=== PATIENT | female | born 1945 | race Caucasian/White ===

== ENCOUNTER → 2016-11-07 | Outpatient (CLI) | payer MEDICARE | END | disposition home or self-care (01) | LOC: RAD 08:21 | PROVIDERS: ATTEND Physical Medicine & Rehabilitation | DX: M47.817 Spondylosis without myelopathy or radiculopathy, lumbosacral region (principal); M47.816 Spondylosis without myelopathy or radiculopathy, lumbar region; M51.36 Other intervertebral disc degeneration, lumbar region; M51.27 Other intervertebral disc displacement, lumbosacral region; M51.26 Other intervertebral disc displacement, lumbar region; M48.06 Spinal stenosis, lumbar region; M48.07 Spinal stenosis, lumbosacral region | CPT/HCPCS: 72148 ==

== ENCOUNTER 2017-02-21 21:26 | Emergency (ER) | payer MEDICARE ==
[~2017-02-21] VITALS: Ht 167.6 cm; Wt 71.8 kg
[2017-02-21] MEDS ORDERED: OXYB5TAB PO (21:40)
[2017-02-21] MEDS ORDERED: LEVO50TA5 PO (21:40)
[2017-02-21] MEDS ORDERED: ATOR10TA9 PO (21:40)
[2017-02-21] MEDS ORDERED: FLONASE (21:40)
[2017-02-21] MEDS ORDERED: SODIUM CHLORIDE 0.9% 1,000ML IVBOLUS ONE (22:00)
[2017-02-21] MEDS ORDERED: MORPHINE SULFATE 4 MG/ML, 1ML IVPush PRN (22:00)
[2017-02-21] MEDS ORDERED: SODIUM CHLORIDE FLUSH 10ML SYR IVF ONE (22:00)
[2017-02-21] MEDS ORDERED: ONDANSETRON 2MG/ML, 2ML IVPush ONE (22:00)
[2017-02-21 22:02] LABS: HEMATOCRIT 40.7 % (34.6-47.8); HEMOGLOBIN 13.7 g/dL (11.7-16.4); WHITE BLOOD COUNT 9.2 x10^3/uL (3.4-10)
[2017-02-21 22:18] LABS: ASPARTATE AMINO TRANSFERASE 21 U/L (15-37); BLOOD UREA NITROGEN 14 mg/dL (7-18)
[2017-02-21 22:32] LABS: IS PT STATUS REG ER OR PRE ER? YES
[2017-02-22 00:17] VITALS: BP 159/88
== END 2017-02-22 00:19 | disposition home or self-care (01) ==
LOC: ED 22:06
DX: R07.2 Precordial pain (principal); R10.13 Epigastric pain; E03.9 Hypothyroidism, unspecified; E78.5 Hyperlipidemia, unspecified
CPT/HCPCS: 36415; 71010; 76700; 80053; 83690; 83880; 84484; 85025; 93005; 96360; 96361; 99285; J7030

== ENCOUNTER 2020-01-02 02:33 | Emergency (ER) | payer MEDICARE ==
[~2020-01-02] VITALS: Ht 167.6 cm; Wt 70.0 kg
[~2020-01-02 02:33] MED LIST: ATOR10TA9 PO; FLONASE; LEVO50TA5 PO; OXYB-39 PO
[2020-01-02] MEDS ORDERED: MORPHINE SULFATE 4 MG/ML, 1ML ONE ×3 (02:45→05:39)
[2020-01-02] MEDS ORDERED: ONDANSETRON 2MG/ML, 2ML ONE ×2 (02:45→05:39)
[2020-01-02] MEDS ORDERED: ONDANSETRON 2MG/ML, 2ML IVPush ONE ×2 (03:00→06:00)
[2020-01-02] MEDS ORDERED: MORPHINE SULFATE 4 MG/ML, 1ML IVPush ONE ×3 (03:00→06:00)
[2020-01-02 03:33] VITALS: BP 108/57
--- NOTE | 2020-01-02 04:15 | NUR ---
TO CT SCAN
== END 2020-01-02 07:16 | disposition home or self-care (01) ==
LOC: ED 06:26
DX: S42.431A Displaced fracture (avulsion) of lateral epicondyle of right humerus, initial encounter for closed fracture (principal); S42.441A Displaced fracture (avulsion) of medial epicondyle of right humerus, initial encounter for closed fracture; S52.124A Nondisplaced fracture of head of right radius, initial encounter for closed fracture; W01.0XXA Fall on same level from slipping, tripping and stumbling without subsequent striking against object, initial encounter; E78.5 Hyperlipidemia, unspecified; E03.9 Hypothyroidism, unspecified; Z90.89 Acquired absence of other organs; Y93.89 Activity, other specified; Y92.009 Unspecified place in unspecified non-institutional (private) residence as the place of occurrence of the external cause; Y99.8 Other external cause status
CPT/HCPCS: 29105; 73070; 73200; 96374; 96375; 96376; 99284; J2270; J2405; 99282; 99283